=== PATIENT | female | born 1985 | race Caucasian/White ===

== ENCOUNTER 2019-07-12 15:43 | Inpatient (IN) ==
[2019-07-12] MEDS ORDERED: miSOPROStoL 50 MCG TAB PO ONE (16:40)
--- NOTE | 2019-07-12 16:49 | History & Physical Report ---
Date of Service July 12, 2019 Assessment & Plan (1) Full-term premature rupture of membranes (PROM) with unknown onset of labor: (2) Post term over 40 weeks: admit, iv, labs. rec cx ripening with cytotec po given unfavorable cx, duration of rom and no significant labor pattern. fhts categ 1. pt understands and agrees. History of Present Illness Chief Complaint: 34yo at 40+ wks egdanny presents to L&D with cc of leaking fluid. She thinks initially leaking was 0730 today but really noted gush at 1418 today. It has been clear to pink. No significant ctx. +FM. Primary Care Provider: NO PCP pnc c/b 1. postdatism 2. abnl quad, nl panorama 3. h/o oral herpes pnl rh pos , rubella immune, gbs neg obh: tab x 1 gynh: h/o CT remote, normal pap smears pmh: anxiety no meds, h/o palpitations psh: neg Allergies Allergy/AdvReac Type Severity Reaction Status Date / Time No Known Drug Allergies Allergy Unknown Verified 07/12/19 16:30 Home Medications Home Medications Medication Instructions Recorded Confirmed Type PNV cmb#95-ferrous fumarate-FA 1 tab PO DAILY 07/12/19 07/12/19 History [] Patient History Medical History Chicken pox as a child Hematuria Herpes simplex cold sores Social History Smoking Status: Never smoker Review of Systems as per Subjective / HPI Physical Exam Constitutional: WD/WN, vitals as above Respiratory: normal respiratory effort, lungs clear to auscultation Cardiovascular: Rate/Rhythm: regular rate and regular rhythm Gastrointestinal (Abdomen): soft gravid nt Musculoskeletal: tr edema nontender calves Neurologic: grossly normal Psychiatric: A+Ox3, euthymic affect Genitourinary: OB Exam Abdomen: + vertex Manual OB Exam: + cervical dilation 1 cm, + cervical effacement (25%), + station -2 and + amniotic fluid (SSE, small pool, cx visually closed, bloody) clear, nitrazine positive (but bloody) and ferning present OB Exam Monitor Tracing: + external FHT monitor used (145 mod variability), + external uterine monitor used (q7), + category I and + normal FHT variability EFW 7-8# Results & Data Vital Signs (Past 12 Hours) Vital Signs Temp Pulse Resp BP 07/12/19 16:18 64 133/83 07/12/19 16:17 98.8 F 18 Code Status & VTE Plan VTE Prophylaxis Plan VTE Prophylaxis will be ordered: No
[2019-07-12 16:58] LABS: Hematocrit (blood only) 34.2 % (37-47); Hemoglobin 11.4 g/dL (12.0-16.0); Mean Corpuscular Hemoglobin 32.3 pg (25-34); Mean Corpuscular Volume 96.9 fL (80-100); Mean Platelet Volume 9.7 fL (7.4-10.4); Platelet Count 179 K/uL (130-400); RDW Coefficient of Variation 13.5 % (11.5-14.5); RDW Standard Deviation 47.3 fL (36.4-46.3); Red Blood Count 3.53 M/uL (4.2-5.4); White Blood Count 6.99 K/uL (4.8-10.8)
[2019-07-12 17:01] LABS: Mean Corpuscular Hgb Conc 33.3 g/dL (32-36)
[2019-07-12] MEDS ORDERED: miSOPROStoL 50 MCG TAB PO STA (21:20)
[2019-07-12] MEDS: LACTATED RINGER'S 1,000 ML IV PRN (23:06)
[2019-07-12] MEDS ORDERED: BUTORPHANOL TARTRATE 1 MG/ML VIAL IV PRN (23:14)
[2019-07-13] MEDS ORDERED: ePHEDrine sulfate 50 MG/ML AMP ONE (01:01)
[2019-07-13] MEDS ORDERED: BUPIVACAINE 0.25% 30 ML VIAL ONE (01:01)
[2019-07-13] MEDS ORDERED: fentaNYL 2MCG/ML ROPIV 1.25MG/ML 100 ML BAG EPI ONE (01:02)
[2019-07-13] MEDS ORDERED: fentaNYL citrate 100 MCG/2 ML VIAL ONE (01:02)
[2019-07-13] MEDS: LACTATED RINGER'S 1,000 ML IV PRN ×2 (01:14→04:12)
--- NOTE | 2019-07-13 01:33 | Labor Progress Brief Note ---
Date of Service July 13, 2019 Subjective Reason For Note: Other strip review per nurse pt is 5cm requests epidural. Assessment & Plan (1) Post term over 40 weeks: (2) Full-term premature rupture of membranes (PROM) with unknown onset of labor: good cx change. consult anesth for epidural. fhts categ 1 Physical Exam Genitourinary: Manual OB Exam: + cervical dilation (per nurse) 5 cm and + station (per nurse) -1 OB Exam Monitor Tracing: + external FHT monitor used (140 mod variability, early decels), + external uterine monitor used (q2-3), + category I and + normal FHT variability Results & Data Vital Signs (Past 12 Hours) Vital Signs Temp Pulse Resp BP Pulse Ox 07/13/19 01:31 79 97 07/13/19 01:26 70 98 07/13/19 01:21 82 98 07/13/19 01:16 76 99 07/13/19 01:11 70 99 07/13/19 01:06 70 98 07/13/19 01:01 72 98 07/13/19 00:57 67 147/72 H 07/13/19 00:56 73 98 07/13/19 00:51 73 98 07/13/19 00:46 78 98 07/13/19 00:45 70 94 07/13/19 00:41 66 97 07/13/19 00:36 80 98 07/13/19 00:34 57 L 94 07/13/19 00:31 68 98 07/13/19 00:26 63 96 07/13/19 00:21 64 97 07/13/19 00:16 75 98 07/13/19 00:11 69 96 07/13/19 00:06 72 98 07/13/19 00:01 66 97 07/12/19 23:56 72 97 07/12/19 23:51 63 98 07/12/19 23:46 75 97 07/12/19 23:44 70 93 07/12/19 23:41 71 97 07/12/19 23:36 63 96 07/12/19 23:31 61 99 07/12/19 23:26 61 98 07/12/19 23:21 70 98 07/12/19 23:20 97.7 F 68 18 143/77 H 07/12/19 21:37 97.9 F 18 07/12/19 19:30 98.1 F 18 07/12/19 19:27 69 131/77 07/12/19 19:26 70 143/69 H 07/12/19 17:00 98.4 F 07/12/19 16:18 64 133/83 07/12/19 16:17 98.8 F 18
[2019-07-13] MEDS ORDERED: NALOXONE HCL 1 MG in SODIUM CHLORIDE 0.9% 1000ML 1,000 ML IV PRN (01:39)
[2019-07-13] MEDS ORDERED: NALBUPHINE HCL INJ 10 MG/ML AMP IV PRN (01:39)
[2019-07-13] MEDS ORDERED: DiphenhydrAMINE HCL 50 MG/ML VIAL IV PRN (01:39)
[2019-07-13] MEDS ORDERED: NALOXONE HCL 0.4 MG/1 ML VIAL/CARP IV PRN (01:39)
[2019-07-13] MEDS ORDERED: ePHEDrine sulfate 50 MG/ML AMP IV PRN (01:39)
[2019-07-13] MEDS ORDERED: fentaNYL 2MCG/ML ROPIV 1.25MG/ML 100 ML BAG EPI PRN (01:39)
[2019-07-13] MEDS ORDERED: ONDANSETRON INJ 2 MG/ML 2 ML VIAL IV PRN (01:39)
--- NOTE | 2019-07-13 01:42 | Anesthesiology Consultation ---
Date of Service July 13, 2019 Assessment & Plan Chart Review Chart Review: Patient NOT seen in Pre Admission Testing and Acceptable Risk for Labor Epidural Consults Requested none ASA ASA2 Proposed Anesthesia Anesthesia Type: Labor Epidural and CSE Risk / Benefits Reviewed With: PT / POA / Parent / Guardian, Accepts Plan and Informed Consent Obtained History Height/Weight Height: 5 ft 3 in Weight: 81.193 kg Allergies Allergy/AdvReac Type Severity Reaction Status Date / Time No Known Drug Allergies Allergy Unknown Verified 07/12/19 16:30 Medications Home Medications Medication Instructions Recorded Confirmed Last Taken PNV cmb#95-ferrous fumarate-FA 1 tab PO DAILY 07/12/19 07/12/19 07/11/19 21:00 [] Active Medications Generic Name Dose Route Start Last Admin Trade Name Freq PRN Reason Stop Dose Admin Butorphanol Tartrate 1 mg 07/12/19 23:14 07/12/19 23:26 Stadol IV 08/11/19 23:13 1 mg ONCE PRN Administration Pain Lactated Ringer's 1,000 mls @ 125 mls/hr 07/12/19 16:40 07/13/19 01:14 Lr IV 07/14/19 16:39 125 mls/hr .Q8H PRN Administration L&D Protocol Protocol NPO Date Last Intake of Fluids: 07/13/19 Time Last Intake of Fluids: 00:30 Date Last Intake of Solids: 07/12/19 Time Last Intake of Solids: 15:00 Past Medical History Medical History Chicken pox as a child Hematuria Herpes simplex cold sores Exercise / Class Metabolic Activity II 4-5 Yardwork/Stairs/Walk up hill Past Family History Family History Mother Anxiety Hypertension Father Anxiety Heart murmur Hypertension Grandmother (Paternal) Cerebral aneurysm Lung cancer Breast cancer Grandmother (Maternal) Lung cancer Brother Malignant neoplasm of testis Sister Ovarian cyst Past Surgical History Surgical History No pertinent past surgical history Past Anesthesia History No Hx of Anesthesia Complications and No Family Hx of Anesthesia Complications History of PONV No Hx of PONV and History of PONV Social History Smoking Status: Never smoker Hx Alcohol Use: No Hx Substance Use: No substance use type: does not use Review of Systems no chest pain or sob Physical Exam Vital Signs Last Vital Signs Temp 36.5 C 07/12/19 23:20 Pulse 72 07/13/19 01:41 Resp 18 07/12/19 23:20 BP 147/72 H 07/13/19 00:57 Pulse Ox 98 07/13/19 01:41 ENMT Mouth: no TMJ abnormality Thyromental Distance: > or= 3.5 Finger Breadths Mallampati Class: II Neck normal visual inspection Respiratory normal respiratory effort Auscultation: lungs clear to auscultation bilaterally Cardiovascular Rate/Rhythm: regular rate and regular rhythm Musculoskeletal Spine: normal cervical ROM Neurologic moves all extremities Psychiatric Orientation: alert and oriented x 3 Testing Laboratory Results 07/12/19 16:47
--- NOTE | 2019-07-13 03:36 | Labor Progress Brief Note ---
Date of Service July 13, 2019 Subjective Reason For Note: Requested By RN (palpated forebag) no pain with epidural. Assessment & Plan (1) Post term over 40 weeks: (2) Full-term premature rupture of membranes (PROM) with unknown onset of labor: good cx change. fhts categ 2. spont pattern after po cytotec Physical Exam Constitutional: WD/WN, vitals as above Genitourinary: Manual OB Exam: + cervical dilation 7 cm, + cervical effacement 80%, + station (with ctx) 0 and + amniotic fluid (forebag) clear OB Exam Monitor Tracing: + external FHT monitor used (150 mod variability), + external uterine monitor used (q2-3), + category II, + normal FHT variability and + variable decelerations (occasional) Results & Data Vital Signs (Past 12 Hours) Vital Signs Temp Pulse Resp BP Pulse Ox 07/13/19 03:31 78 98 07/13/19 03:27 63 123/62 07/13/19 03:26 71 97 07/13/19 03:21 72 99 07/13/19 03:16 73 100 07/13/19 03:11 57 L 129/62 100 07/13/19 03:06 76 100 07/13/19 03:01 81 100 07/13/19 02:58 66 132/63 07/13/19 02:56 68 98 07/13/19 02:51 66 97 07/13/19 02:46 68 97 07/13/19 02:42 63 125/58 L 07/13/19 02:41 79 98 07/13/19 02:36 70 97 07/13/19 02:31 74 98 07/13/19 02:26 71 98 07/13/19 02:24 84 107/60 07/13/19 02:22 83 121/62 07/13/19 02:21 72 97 07/13/19 02:19 70 114/56 L 07/13/19 02:16 82 97 07/13/19 02:11 75 98 07/13/19 02:09 71 18 116/65 07/13/19 02:07 68 116/56 L 07/13/19 02:06 65 96 07/13/19 02:05 66 111/62 07/13/19 02:03 80 111/62 07/13/19 02:01 67 117/56 L 96 07/13/19 01:59 98.1 F 61 18 117/56 L 07/13/19 01:56 75 97 07/13/19 01:55 71 138/66 07/13/19 01:51 69 97 07/13/19 01:46 72 98 07/13/19 01:41 72 98 07/13/19 01:36 70 97 07/13/19 01:31 79 97 07/13/19 01:30 98.2 F 07/13/19 01:26 70 98 07/13/19 01:21 82 98 07/13/19 01:16 76 99 07/13/19 01:11 70 99 07/13/19 01:06 70 98 07/13/19 01:01 72 98 07/13/19 00:57 67 147/72 H 07/13/19 00:56 73 98 07/13/19 00:51 73 98 07/13/19 00:46 78 98 07/13/19 00:45 70 94 07/13/19 00:41 66 97 07/13/19 00:36 80 98 07/13/19 00:34 57 L 94 07/13/19 00:31 68 98 07/13/19 00:26 63 96 07/13/19 00:21 64 97 07/13/19 00:16 75 98 07/13/19 00:11 69 96 07/13/19 00:06 72 98 07/13/19 00:01 66 97 07/12/19 23:56 72 97 07/12/19 23:51 63 98 07/12/19 23:46 75 97 07/12/19 23:44 70 93 07/12/19 23:41 71 97 07/12/19 23:36 63 96 07/12/19 23:31 61 99 07/12/19 23:26 61 98 07/12/19 23:21 70 98 07/12/19 23:20 97.7 F 68 18 143/77 H 07/12/19 21:37 97.9 F 18 07/12/19 19:30 98.1 F 18 07/12/19 19:27 69 131/77 07/12/19 19:26 70 143/69 H 07/12/19 17:00 98.4 F 07/12/19 16:18 64 133/83 07/12/19 16:17 98.8 F 18
[2019-07-13] MEDS ORDERED: OXYTOCIN 30 UNITS/500ML NSS ONE (06:59)
--- NOTE | 2019-07-13 08:02 | Anesthesia Procedure Note ---
Date of Service July 13, 2019 Anesthesia Post Epidural Note Vital Signs Vital Signs: Temp Pulse Resp BP Pulse Ox 36.6 C 97 H 16 129/67 90 07/13/19 07:06 07/13/19 07:56 07/13/19 07:06 07/13/19 07:56 07/13/19 07:31 Pain Intensity Bilateral Perineal: Pain Intensity: 0 Notes Mental Status: alert / awake / arousable and participated in evaluation Patient Amnestic to Procedure: Yes Nausea / Vomiting: adequately controlled Pain: adequately controlled Airway Patency, RR, SpO2: stable & adequate BP & HR: stable & adequate Hydration State: stable & adequate Neuraxial Anesthesia: was administered and sensory block is resolving Anesthetic Complications: no major complications apparent and Pt Satisfied with anesthetic care Epidural: Removed without complications and With tip intact
--- NOTE | 2019-07-13 08:03 | Delivery Summary ---
Vaginal Delivery Summary Date of Service July 13, 2019 The patient dilated to complete and pushed to deliver a viable female A pgars 9 and 9 via over 3rd degree perineal laceration. Uncontrolled delivery of shoulders and body occurred with maternal expulsive efforts. was vigorous and crying at . Cord clamped at 30 seconds of life and infant to maternal abdomen where the cord was then doubly clamped and cut. Placenta delivered spontaneously and intact, three-vessel cord. Hemostasis achieved with dilute pitocin and uterine massage and drainage of the bladder for approximately 200 cc under sterile conditions. Cervix and sulci intact. Laceration repaired in usual fashion with both 2-0 and 3-0 vicryl in multiple layers. Rectal neg fo sutures. EBL 300 cc. Mother and baby stable recovery. [facility] Vaginal Delivery Charge Vaginal Delivery Codes: 45978 global code for the antepartum, delivery, and post-
[2019-07-13] MEDS ORDERED: CEFAZOLIN 2000MG 2,000 MG/15 ML SYR IV ONE (08:45)
[2019-07-13] MEDS: IBUPROFEN 600 MG TAB PO PRN ×4 (09:07→23:45)
[2019-07-13] MEDS ORDERED: SUPERCREAM 0.870% 15 GM JAR EXT PRN (11:10)
[2019-07-13] MEDS ORDERED: ACETAMINOPHEN 325 MG TAB PO PRN (11:10)
[2019-07-13] MEDS ORDERED: OXYTOCIN 30 UNITS/500 ML BAG IV PRN (11:10)
[2019-07-13] MEDS ORDERED: HYDROCORTISONE ACETATE 25 MG SUPP PR PRN (11:10)
[2019-07-13] MEDS ORDERED: DIPHTHERIA/TETANUS/PERTUSSIS 0.5 ML SYR/VIAL IM ONE (11:10)
[2019-07-13] MEDS ORDERED: BENZOCAINE 20% AER SPR 82.5 GM CAN EXT PRN (11:10)
[2019-07-13] MEDS: PRENATAL VITAMIN 1 TAB PO SCH (12:37)
[2019-07-13] MEDS: DOCUSATE SODIUM 100 MG CAP PO SCH ×2 (12:37→21:30)
[2019-07-14] MEDS: IBUPROFEN 600 MG TAB PO PRN ×4 (06:08→20:43)
--- NOTE | 2019-07-14 08:17 | Obstetrical Progress Note ---
Date of Service July 14, 2019 Assessment & Plan (1) care and examination: 34yo day 1 S/P . Doing well - Vitals stable/ pain controlled/ normal lochia - Routine care Subjective Ambulation: ambulating normally Voiding: no voiding problems Diet Tolerance:: regular diet Lochia:: Moderate Feeding Type:: breast feeding Current Pain Level(1-10): 3 Physical Exam Constitutional WD/WN, vitals as above Gastrointestinal (Abdomen) Inspection/Auscultation: abdomen not distended Percussion/Palpation: abdomen soft; abdomen nontender, no guarding and abdomen not rigid Genitourinary OB Exam Abdomen: + fundal height Fundus: + firm and + relation to umbilicus (Below); not tender and not boggy Results & Data Vital Signs (Past 12 Hours) Vital Signs Temp Pulse Resp BP Pulse Ox 07/14/19 07:40 36.6 C 65 20 123/78 07/14/19 03:28 36.6 C 53 L 20 140/76 07/13/19 23:45 36.9 C 60 18 130/82 07/13/19 21:00 36 C L 76 20 139/78 98
[2019-07-14] MEDS: DOCUSATE SODIUM 100 MG CAP PO SCH ×2 (08:31→20:43)
[2019-07-14] MEDS: PRENATAL VITAMIN 1 TAB PO SCH (08:31)
[2019-07-14 23:47] VITALS: O2SAT 98
[2019-07-15] MEDS ORDERED: LABETALOL HCL 200 MG TAB PO ONE (00:14)
[2019-07-15] MEDS: IBUPROFEN 600 MG TAB PO PRN ×3 (00:43→12:32)
--- NOTE | 2019-07-15 06:36 | Obstetrical Progress Note ---
Date of Service <Octavia Bolden DO - Last Filed: 07/15/19 07:02> July 15, 2019 Assessment & Plan <Octavia Bolden DO - Last Filed: 07/15/19 07:02> (1) care and examination: 34 yo F PPD #2 following vaginal delivery at 40+ weeks GA, doing well and without complaints this morning. - PPD #2 - Feels well, ambulating well, voiding well. - For discharge today. - Following d/c will have OB f/u in 6 weeks. - Rh+, Rubella immune, GBS - - Went over discharge instructions and answered all patient questions. Day #:: 2 Subjective <Octavia Bolden DO - Last Filed: 07/15/19 07:02> Florinda is a 34 yo female ; PPD # 2 following vaginal delivery at 40+ weeks GA; doing well this AM; no abdominal cramping/pain; voiding well; tolerating meals overnight, able to ambulate some within the room. Some persistent spotting this morning but improved from yesterday. Reports that sometimes when she gets up to standing from sitting she feels that her "breath is taken away for a few seconds" but then it resolves with sitting down. No chest pain, no calf tenderness. Pain is well controlled with ibuprofen and tylenol. Overnight had one episode of HTN 166/88 but does not report any dizziness, visual changes, or presyncope with this. Review of Systems Constitutional: denies fever, chills, sweats, headache Respiratory: some increased work of breathing as described in subjective Cardiac: denies CP, chest palpitations, chest pressure Breast: denies breast pain : denies dysuria Physical Exam <Octavia Bolden DO - Last Filed: 07/15/19 07:02> General: patient is alert and oriented, in NAD, sitting upright in bed Cardiac: +S1/S2, no murmurs rubs or gallops Respiratory: lungs CTA b/l anteriorly and posteriorly, no wheezes rales or rhonchi, no increased work of breathing at time of exam, symmetric chest rise, no respiratory distress Abdomen: soft, NT, +bowel sounds Uterus: uterine fundus firm, palpable below the level of the umbilicus Lower Extremities: no LE edema or swelling, no deep calf pain, Sandy's sign negative b/l Results & Data <Octavia Bolden, DO - Last Filed: 07/15/19 07:02> Vital Signs (Past 12 Hours) Vital Signs Temp Pulse Pulse Resp BP BP Pulse Ox 07/15/19 03:30 59 L 16 128/74 07/15/19 00:40 52 L 16 126/76 07/14/19 23:20 36.6 C 52 L 18 166/88 H 152/90 H 98 07/14/19 19:30 36.7 C 67 18 134/80 Medications Administered Current Medications Acetaminophen (Tylenol) 650 mg PO Q6H PRN PRN Reason: Pain/MCKEON/Fever Stop: 08/12/19 11:09 Last Admin: 07/14/19 17:58 Dose: 650 mg Documented by: Benzocaine (Dermoplast Pain Relieving [place]) 1 appln EXT PRN PRN PRN Reason: Perineal Discomfort Stop: 08/12/19 11:09 Last Admin: 07/13/19 12:32 Dose: 82.5 appln Documented by: Cocaine HCl (Supercream 0.870%) 1 gm EXT BID PRN PRN Reason: Hemorrhoidal Inflammation Stop: 07/27/19 11:09 Last Admin: 07/13/19 12:31 Dose: 15 gm Documented by: Docusate Sodium (Colace) 100 mg PO DAILY@08, [facility] Stop: 08/12/19 11:09 Last Admin: 07/14/19 20:43 Dose: 100 mg Documented by: Hydrocortisone (Anusol Hc) 25 mg WI BID PRN PRN Reason: Hemorrhoidal Inflammation Stop: 08/12/19 11:09 Oxytocin (Pitocin) 30 units in 500 mls @ 333.333 mls/hr IV .Q1H30M PRN; Protocol PRN Reason: Bleeding Control Stop: 08/12/19 11:09 Ibuprofen (Motrin) 600 mg PO Q4H PRN PRN Reason: Pain/MCKEON/Cramping/Fever Stop: 08/12/19 07:59 Last Admin: 07/15/19 00:43 Dose: 600 mg Documented by: Micaelaat Multivit/[place]/Iron/Folic Ac ( Vitamin) 1 tab PO DAILY@08 [facility] Stop: 08/12/19 11:09 Last Admin: 07/14/19 08:31 Dose: 1 tab Documented by: <Miguel Robertson MD - Last Filed: 07/15/19 07:19> Co-Signing Physician Notes Patient seen and evaluated and agree with the above findings and plan. Patient stable for discharge pending that she is doing well late morning. We discussed edwin care and precautions. Resident Activity Tracking <Octavia Bolden DO - Last Filed: 07/15/19 07:02> Resident Involvement: Resident Care Provided Care Provided: Adult Hospital Medicine
[2019-07-15 07:51] VITALS: TEMP 97.3
[2019-07-15] MEDS: DOCUSATE SODIUM 100 MG CAP PO SCH (08:26)
[2019-07-15] MEDS: PRENATAL VITAMIN 1 TAB PO SCH (08:26)
[2019-07-15 11:13] VITALS: BP 142/83
[2019-07-15 11:22] VITALS: PULSE 52
== END 2019-07-15 13:25 | disposition home or self-care (01) | DRG 768 ==
LOC: OPB 15:43 → 4S1 15:44 → 4S2 07-13 11:00